=== PATIENT | female | born 1980 | race Caucasian/White ===

== ENCOUNTER → 2024-08-05 | Outpatient (CLI) | payer BC | LOC: M RAD 12:19 | PROVIDERS: ATTEND Obstetrics & Gynecology | DX: O32.1XX0 Maternal care for breech presentation, not applicable or unspecified (principal); Z3A.23 23 weeks gestation of pregnancy ==

== ENCOUNTER → 2024-08-19 | Outpatient (CLI) | payer BC ==
[2024-08-19 12:56] LABS: HEMATOCRIT 35.3 % (36.0-47.0); HEMOGLOBIN 11.7 g/dl (12.0-15.5); MEAN CORPUSCULAR HEMOGLOBIN 30.6 pg (27.0-33.0); MEAN CORPUSCULAR HGB CONC 33.1 g/dl (32.0-36.5); MEAN CORPUSCULAR VOLUME 92.4 fl (80.0-96.0); PLATELET COUNT, AUTOMATED 301 10^3/uL (150-450); RED BLOOD COUNT 3.82 10^6/uL (4.00-5.40); WHITE BLOOD COUNT 9.9 10^3/uL (4.0-10.0)
[2024-08-19 13:16] LABS: GLUCOSE CHALLENGE TEST 1 HOUR 106 MG/DL (LESS THAN 140)
[2024-08-19 13:45] LABS: HIV 1&2 SCREEN NEGATIVE (NEGATIVE)
[2024-08-19 13:53] LABS: HEPATITIS C VIRUS ABY INDEX < 0.02 INDEX (<0.8)
[2024-08-19 18:33] LABS: GC DNA AMPLIFICATION NEGATIVE (NEGATIVE)
== END ==
LOC: M PLALAB 08:57
PROVIDERS: ATTEND Obstetrics & Gynecology
DX: Z34.82 Encounter for supervision of other normal pregnancy, second trimester (principal)
CPT/HCPCS: 36415; 82950; 85027; 86780; 86803; 86850; 86900; 86901; 87389; 87810; 87850; J2790

== ENCOUNTER → 2024-09-24 | Outpatient (CLI) | payer BC | LOC: M WHC 13:41 | PROVIDERS: ATTEND Obstetrics & Gynecology | DX: Z34.82 Encounter for supervision of other normal pregnancy, second trimester (principal) ==

== ENCOUNTER → 2024-10-28 | Outpatient (REF) | payer BC | LOC: M SFHCWAGY 17:36 | PROVIDERS: ATTEND Obstetrics & Gynecology | DX: Z34.93 Encounter for supervision of normal pregnancy, unspecified, third trimester (principal); Z3A.35 35 weeks gestation of pregnancy ==

== ENCOUNTER → 2025-08-18 | Outpatient (CLI) | payer BC ==
[~2025-08-18] MED LIST: FERR325T3 PO; PRENTAB9 PO
== END ==
LOC: M WHC 10:06
PROVIDERS: ATTEND Advanced Practice Midwife
DX: Z12.31 Encounter for screening mammogram for malignant neoplasm of breast (principal); R92.333 Mammographic heterogeneous density, bilateral breasts